=== PATIENT | female | born 1945 | race Caucasian/White ===

== ENCOUNTER 2016-10-02 18:43 | Inpatient (IN) | payer MEDICARE ==
[~2016-10-02] VITALS: Ht 162.6 cm; Wt 84.3 kg
[2016-10-02] MEDS: SODIUM CHLORIDE 0.9% 1,000 ML IV SCH (01:20)
[2016-10-02] MEDS: CEFTRIAXONE PMX 2GM/50ML 50 ML IVPB SCH (04:55)
[~2016-10-02 18:43] MED LIST: ALPR-475 PO; CALC-666 PO; FLUT1AER INH; FOLI-17 PO; LOSA1TAB17 PO; MULT1TAB60 PO; OLME1TAB32 PO; OMEP-110 PO; PRED20TA PO; SERT25TA PO; WARF5TAB PO
[2016-10-02 20:18] LABS: BLOOD UREA NITROGEN 28 mg/dL (7-18)
[2016-10-02 20:19] LABS: ASPARTATE AMINO TRANSFERASE 30 U/L (15-37)
[2016-10-02] MEDS ORDERED: methylPREDNISolone SOD SUCC 125 MG/2 ML ONE (20:29)
[2016-10-02] MEDS ORDERED: SODIUM CHLORIDE 0.9%, 500ML IVBOLUS ONE (20:30)
[2016-10-02] MEDS ORDERED: methylPREDNISolone SOD SUCC 125 MG/2 ML IVPush ONE (20:30)
[2016-10-02] MEDS ORDERED: CEFTRIAXONE 2 GM in SODIUM CHLORIDE 0.9% 50 ML IV SCH (23:00)
[2016-10-02] MEDS ORDERED: CEFTRIAXONE PMX 2GM/50ML 50 ML ONE (23:28)
[2016-10-03] MEDS ORDERED: BISACODYL 10 MG SUPP PR PRN
[2016-10-03] MEDS ORDERED: NOREPINEPHRINE 4 MG in SODIUM CHLORIDE 0.9% 246 ML IV PRN
[2016-10-03] MEDS ORDERED: DOCUSATE 100 MG CAPSULE PO PRN
[2016-10-03] MEDS ORDERED: POLYETHYLENE GLYCOL 17 GM PACKET PO PRN
[2016-10-03] MEDS ORDERED: hydrALAzine 20 MG/ML, 1ML IVPush PRN
[2016-10-03] MEDS ORDERED: ONDANSETRON 2MG/ML, 2ML IVPush PRN
[2016-10-03] MEDS: NICOTINE 14MG/24 HR PATCH.TD24 TD SCH ×2 (01:20→23:37)
[2016-10-03] MEDS: methylPREDNISolone SOD SUCC 125 MG/2 ML IVPush SCH ×4 (05:57→23:36)
[2016-10-03 05:58] LABS: ASPARTATE AMINO TRANSFERASE 23 U/L (15-37); BLOOD UREA NITROGEN 21 mg/dL (7-18)
[2016-10-03] MEDS: SODIUM CHLORIDE 0.9% 1,000 ML IV SCH (06:27)
[2016-10-03] MEDS: FLUTICASONE/VILANTEROL 100-25MCG/INH INH SCH ×2 (09:00→20:53)
[2016-10-03] MEDS ORDERED: MAGNESIUM SULFATE PMX 4GM/100M 100 ML IV ONE (09:00)
[2016-10-03] MEDS: MULTIVITAMIN 1 TABLET PO SCH (09:20)
[2016-10-03] MEDS: FOLIC ACID 1 MG TABLET PO SCH (09:20)
[2016-10-03] MEDS: SERTRALINE 50MG TABLET PO SCH (09:21)
[2016-10-03] MEDS: ACETAMINOPHEN 325 MG TABLET PO PRN (09:21)
[2016-10-03] MEDS: TRAZODONE 50MG TABLET PO PRN (22:12)
[2016-10-03] MEDS: CEFTRIAXONE PMX 2GM/50ML 50 ML IVPB SCH (23:36)
[2016-10-04 04:54] LABS: BLOOD UREA NITROGEN 25 mg/dL (7-18)
[2016-10-04 05:29] VITALS: BP 96/63
[2016-10-04] MEDS: methylPREDNISolone SOD SUCC 125 MG/2 ML IVPush SCH ×4 (05:51→23:51)
[2016-10-04] MEDS: FOLIC ACID 1 MG TABLET PO SCH (09:57)
[2016-10-04] MEDS: FLUTICASONE/VILANTEROL 100-25MCG/INH INH SCH ×2 (09:58→21:29)
[2016-10-04] MEDS: MULTIVITAMIN 1 TABLET PO SCH (09:58)
[2016-10-04] MEDS: SERTRALINE 50MG TABLET PO SCH (10:54)
[2016-10-04 16:00] VITALS: BP 95/63
[2016-10-04 20:09] VITALS: BP 113/71
[2016-10-04] MEDS ORDERED: CALCIUM CARBONATE 500 MG TAB.CHEW PO ONE (20:30)
[2016-10-04] MEDS: TRAZODONE 50MG TABLET PO PRN (23:51)
[2016-10-04] MEDS: NICOTINE 14MG/24 HR PATCH.TD24 TD SCH (23:51)
[2016-10-04] MEDS: CEFTRIAXONE PMX 2GM/50ML 50 ML IVPB SCH (23:51)
[2016-10-05 01:19] VITALS: BP 113/70
[2016-10-05] MEDS: methylPREDNISolone SOD SUCC 125 MG/2 ML IVPush SCH ×4 (05:37→23:12)
[2016-10-05 06:45] LABS: BLOOD UREA NITROGEN 33 mg/dL (7-18)
[2016-10-05] MEDS: FLUTICASONE/VILANTEROL 100-25MCG/INH INH SCH ×2 (08:05→20:57)
[2016-10-05] MEDS: MULTIVITAMIN 1 TABLET PO SCH (08:06)
[2016-10-05] MEDS: FOLIC ACID 1 MG TABLET PO SCH (08:06)
[2016-10-05] MEDS: SERTRALINE 50MG TABLET PO SCH (08:06)
[2016-10-05 08:17] VITALS: BP 124/80
[2016-10-05 12:43] VITALS: BP 114/71
[2016-10-05] MEDS: CALCIUM CARBONATE 500 MG TAB.CHEW PO PRN ×3 (16:25→20:59)
[2016-10-05 19:13] VITALS: BP 124/79
[2016-10-05] MEDS: TRAZODONE 50MG TABLET PO PRN (20:59)
[2016-10-05] MEDS: NICOTINE 14MG/24 HR PATCH.TD24 TD SCH (20:59)
[2016-10-05] MEDS: CEFTRIAXONE PMX 2GM/50ML 50 ML IVPB SCH (23:12)
[2016-10-06 02:22] VITALS: BP 118/71
[2016-10-06] MEDS: methylPREDNISolone SOD SUCC 125 MG/2 ML IVPush SCH (04:54)
[2016-10-06 05:20] LABS: BLOOD UREA NITROGEN 35 mg/dL (7-18)
[2016-10-06 07:13] VITALS: BP 133/82
[2016-10-06] MEDS: MULTIVITAMIN 1 TABLET PO SCH (08:39)
[2016-10-06] MEDS: FOLIC ACID 1 MG TABLET PO SCH (08:39)
[2016-10-06] MEDS: FLUTICASONE/VILANTEROL 100-25MCG/INH INH SCH ×2 (08:39→20:51)
[2016-10-06] MEDS: SERTRALINE 50MG TABLET PO SCH (08:39)
[2016-10-06] MEDS: BISACODYL 10 MG SUPP PR SCH (08:41)
[2016-10-06] MEDS: ACETAMINOPHEN 325 MG TABLET PO PRN (10:38)
[2016-10-06] MEDS: CALCIUM CARBONATE 500 MG TAB.CHEW PO PRN (13:26)
[2016-10-06 14:10] VITALS: BP 144/80
[2016-10-06] MEDS: LORazepam 2 MG/ML, 1ML IVPush PRN ×2 (18:33→20:52)
[2016-10-06] MEDS: TRAZODONE 50MG TABLET PO PRN (20:52)
[2016-10-06 20:57] VITALS: BP 157/91
[2016-10-06] MEDS ORDERED: LORazepam 1MG TABLET PO PRN (22:30)
[2016-10-06] MEDS: CEFTRIAXONE PMX 2GM/50ML 50 ML IVPB SCH (23:45)
[2016-10-06] MEDS: NICOTINE 14MG/24 HR PATCH.TD24 TD SCH (23:45)
[2016-10-07] MEDS: LORazepam 2 MG/ML, 1ML IVPush PRN (00:47)
[2016-10-07 01:51] VITALS: BP 142/79
[2016-10-07 08:24] VITALS: BP 153/87
[2016-10-07 08:27] LABS: BLOOD UREA NITROGEN 34 mg/dL (7-18)
[2016-10-07] MEDS: BISACODYL 10 MG SUPP PR SCH (09:00)
[2016-10-07] MEDS: FOLIC ACID 1 MG TABLET PO SCH (09:53)
[2016-10-07] MEDS: SERTRALINE 50MG TABLET PO SCH (09:53)
[2016-10-07] MEDS: MULTIVITAMIN 1 TABLET PO SCH (09:53)
[2016-10-07] MEDS: FLUTICASONE/VILANTEROL 100-25MCG/INH INH SCH ×2 (12:10→20:55)
[2016-10-07 13:27] VITALS: BP 136/78
[2016-10-07 18:52] VITALS: BP 147/85
[2016-10-07] MEDS: CEFTRIAXONE PMX 2GM/50ML 50 ML IVPB SCH (23:49)
[2016-10-08 00:27] VITALS: BP 150/83
[2016-10-08 06:49] VITALS: BP 156/100
[2016-10-08] MEDS: BISACODYL 10 MG SUPP PR SCH (09:00)
[2016-10-08] MEDS: LORazepam 0.5MG TABLET PO PRN ×2 (10:32→17:18)
[2016-10-08] MEDS: FOLIC ACID 1 MG TABLET PO SCH (10:32)
[2016-10-08] MEDS: SERTRALINE 50MG TABLET PO SCH (10:33)
[2016-10-08] MEDS: MULTIVITAMIN 1 TABLET PO SCH (10:33)
[2016-10-08] MEDS: LOSARTAN 50MG TABLET PO SCH (10:34)
[2016-10-08] MEDS: FLUTICASONE/VILANTEROL 100-25MCG/INH INH SCH ×2 (10:35→21:39)
[2016-10-08 13:34] VITALS: BP 145/85
[2016-10-08 16:25] VITALS: BP 155/82
[2016-10-08 19:22] VITALS: BP 152/94
[2016-10-08] MEDS ORDERED: OMNIPAQUE 350 MG/ML, 100ML BOTTLE ONE (22:49)
[2016-10-08] MEDS ORDERED: FUROSEMIDE 40 MG/4 ML IV ONE (23:30)
[2016-10-08] MEDS: NICOTINE 14MG/24 HR PATCH.TD24 TD SCH ×2 (23:49)
[2016-10-08] MEDS: CEFTRIAXONE PMX 2GM/50ML 50 ML IVPB SCH (23:49)
[2016-10-09 00:40] VITALS: BP 154/95
[2016-10-09] MEDS: LORazepam 0.5MG TABLET PO PRN ×3 (00:53→22:38)
[2016-10-09 06:42] VITALS: BP 136/86
[2016-10-09] MEDS: BISACODYL 10 MG SUPP PR SCH (09:00)
[2016-10-09] MEDS: FLUTICASONE/VILANTEROL 100-25MCG/INH INH SCH ×2 (09:00→22:31)
[2016-10-09] MEDS: LOSARTAN 50MG TABLET PO SCH (09:56)
[2016-10-09] MEDS: SERTRALINE 50MG TABLET PO SCH (09:57)
[2016-10-09] MEDS: MULTIVITAMIN 1 TABLET PO SCH (09:57)
[2016-10-09] MEDS: FOLIC ACID 1 MG TABLET PO SCH (09:57)
[2016-10-09 13:13] VITALS: BP 127/76
[2016-10-09 13:26] LABS: IS PT STATUS REG ER OR PRE ER? NO
[2016-10-09 18:31] VITALS: BP 134/84
[2016-10-09] MEDS: CALCIUM CARBONATE 500 MG TAB.CHEW PO PRN (22:38)
[2016-10-09] MEDS: CEFTRIAXONE PMX 2GM/50ML 50 ML IVPB SCH (23:32)
[2016-10-09] MEDS: NICOTINE 14MG/24 HR PATCH.TD24 TD SCH (23:59)
[2016-10-10 01:38] VITALS: BP 147/94
[2016-10-10 06:37] VITALS: BP 135/84
[2016-10-10] MEDS: BISACODYL 10 MG SUPP PR SCH (09:00)
[2016-10-10] MEDS: SERTRALINE 50MG TABLET PO SCH (09:48)
[2016-10-10] MEDS: FLUTICASONE/VILANTEROL 100-25MCG/INH INH SCH ×2 (09:48→20:26)
[2016-10-10] MEDS: MULTIVITAMIN 1 TABLET PO SCH (09:48)
[2016-10-10] MEDS: LOSARTAN 50MG TABLET PO SCH (09:49)
[2016-10-10] MEDS: FOLIC ACID 1 MG TABLET PO SCH (09:49)
[2016-10-10] MEDS: LORazepam 0.5MG TABLET PO PRN ×2 (09:53→22:02)
[2016-10-10 12:40] VITALS: BP 103/69
[2016-10-10 19:09] VITALS: BP 157/84
[2016-10-10] MEDS: CEFDINIR 300 MG CAPSULE PO SCH (20:27)
[2016-10-10] MEDS: CALCIUM CARBONATE 500 MG TAB.CHEW PO PRN (22:07)
[2016-10-11] MEDS: NICOTINE 14MG/24 HR PATCH.TD24 TD SCH (00:24)
[2016-10-11 01:12] VITALS: BP 155/94
[2016-10-11] MEDS: ACETAMINOPHEN 325 MG TABLET PO PRN ×2 (01:36→22:41)
[2016-10-11 07:01] VITALS: BP 125/80
[2016-10-11] MEDS: FLUTICASONE/VILANTEROL 100-25MCG/INH INH SCH ×2 (08:13→22:41)
[2016-10-11] MEDS: CEFDINIR 300 MG CAPSULE PO SCH (08:13)
[2016-10-11] MEDS: LORazepam 0.5MG TABLET PO PRN (08:13)
[2016-10-11] MEDS: MULTIVITAMIN 1 TABLET PO SCH (08:13)
[2016-10-11] MEDS: SERTRALINE 50MG TABLET PO SCH (08:13)
[2016-10-11] MEDS: FOLIC ACID 1 MG TABLET PO SCH (08:13)
[2016-10-11] MEDS: LOSARTAN 50MG TABLET PO SCH (08:14)
[2016-10-11] MEDS: BISACODYL 10 MG SUPP PR SCH (08:29)
[2016-10-11] MEDS ORDERED: NICO1PAT4 TD (12:37)
[2016-10-11 14:01] VITALS: BP 120/74
[2016-10-11 18:54] VITALS: BP 143/88
[2016-10-12] MEDS: NICOTINE 14MG/24 HR PATCH.TD24 TD SCH (01:13)
[2016-10-12 02:32] VITALS: BP 158/95
[2016-10-12 07:40] VITALS: BP 137/83
[2016-10-12] MEDS: BISACODYL 10 MG SUPP PR SCH (09:00)
[2016-10-12] MEDS: LOSARTAN 50MG TABLET PO SCH (09:43)
[2016-10-12] MEDS: SERTRALINE 50MG TABLET PO SCH (09:43)
[2016-10-12] MEDS: FLUTICASONE/VILANTEROL 100-25MCG/INH INH SCH (09:44)
[2016-10-12] MEDS: MULTIVITAMIN 1 TABLET PO SCH (09:44)
[2016-10-12] MEDS: FOLIC ACID 1 MG TABLET PO SCH (09:44)
== END 2016-10-12 13:10 | DRG 871 ==
LOC: ED 21:11 → EDIP 21:23 → ICU 23:31 → 3NE 10-04 14:30
PROVIDERS: ADMIT Internal Medicine; ATTEND Internal Medicine
DX: A41.9 Sepsis, unspecified organism (principal); R65.21 Severe sepsis with septic shock; E43 Unspecified severe protein-calorie malnutrition; G93.41 Metabolic encephalopathy; E87.1 Hypo-osmolality and hyponatremia; N39.0 Urinary tract infection, site not specified; D69.3 Immune thrombocytopenic purpura; J44.1 Chronic obstructive pulmonary disease with (acute) exacerbation; I10 Essential (primary) hypertension; E04.1 Nontoxic single thyroid nodule; E86.0 Dehydration; F10.10 Alcohol abuse, uncomplicated; F17.210 Nicotine dependence, cigarettes, uncomplicated; K59.00 Constipation, unspecified; Z80.6 Family history of leukemia; Z79.52 Long term (current) use of systemic steroids; Z83.3 Family history of diabetes mellitus; Z86.718 Personal history of other venous thrombosis and embolism; Z91.14 Patient's other noncompliance with medication regimen; Z90.710 Acquired absence of both cervix and uterus; Z88.5 Allergy status to narcotic agent; Z88.0 Allergy status to penicillin; Z80.9 Family history of malignant neoplasm, unspecified; Z68.31 Body mass index [BMI] 31.0-31.9, adult
CPT/HCPCS: 36415; 71010; 71275; 80048; 80053; 81001; 83605; 83735; 83880; 84100; 84439; 84443; 84484; 85025; 85379; 85610; 85651; 85730; 86850; 86900; 87040; 87081; 87086; 93005; 93306; 96361; 96374; J0696; J1940; J2405; Q9967; J2060; J2930; J3475; J7030; J7040; J7512

== ENCOUNTER 2016-11-19 15:47 | Emergency (ER) | payer MEDICARE ==
[~2016-11-19] VITALS: Ht 162.6 cm; Wt 78.0 kg
[~2016-11-19 15:47] MED LIST changes: +NICO1PAT4 TD
[2016-11-19 16:25] LABS: ASPARTATE AMINO TRANSFERASE 17 U/L (15-37); BLOOD UREA NITROGEN 11 mg/dL (7-18)
[2016-11-19 16:31] LABS: IS PT STATUS REG ER OR PRE ER? YES
[2016-11-19] MEDS ORDERED: MECLIZINE CHEWABLE 25 MG TAB PO ONE (17:00)
[2016-11-19] MEDS ORDERED: MECLIZINE CHEWABLE 25 MG TAB ONE (17:01)
[2016-11-19 18:33] VITALS: BP 131/65
== END 2016-11-19 18:39 | disposition home or self-care (01) ==
LOC: ED 16:46
DX: R42 Dizziness and giddiness (principal); F41.1 Generalized anxiety disorder; J01.00 Acute maxillary sinusitis, unspecified; I10 Essential (primary) hypertension; Z86.718 Personal history of other venous thrombosis and embolism
CPT/HCPCS: 36415; 70450; 71010; 80053; 83690; 84436; 84443; 84484; 85025; 93005; 99285